=== PATIENT | male | born 1995 | race American Indian/Alaskan Native ===

== ENCOUNTER 2017-05-27 12:01 | Emergency (ER) | payer SELFPAY ==
--- NOTE | 2017-05-27 13:10 | Emergency Department Report ---
Stated Complaint: HEADACHE/VOMITTING /TOOTHACHE Time Seen by Provider: 05/27/17 13:08 - HPI History of Present Illness: PT c/o toothache since yesterday. PT states he has thrown up 4 times. PT states he is taking Goody's powder for the pain - ROS Review of Systems: + nausea + vomiting + dental pain - Exam Physical Exam: thin male, no acute distress no facial swelling noted MSE screening note: Focused history and physical exam performed. Due to findings the following was ordered: labs ED Disposition for MSE Condition: Stable
[2017-05-27 13:12] VITALS: BP 115/81
[2017-05-27 14:41] LABS: Basophils % (Auto) 0.5 % (0.0-1.8); Eosinophils % (Auto) 1.6 % (0.0-4.3); Hematocrit 43.9 % (35.5-45.6); Hemoglobin 14.6 gm/dl (11.8-15.2); Mean Corpuscular HGB Conc 33 % (32-34); Mean Corpuscular Hemoglobin 29 pg (28-32); Mean Corpuscular Volume 88 fl (84-94); Platelet Count 213 K/mm3 (140-440); Red Cell Distribution Width 14.5 % (13.2-15.2); White Blood Count 7.1 K/mm3 (4.5-11.0)
[2017-05-27 15:14] LABS: Alanine Aminotransferase 13 units/L (7-56); Albumin 4.5 g/dL (3.9-5); Albumin/Globulin Ratio 1.6 %; Alkaline Phosphatase 85 units/L (35-129); Anion Gap 19 mmol/L; BUN/Creatinine Ratio 11.42; Blood Urea Nitrogen 8 mg/dL (9-20); Calcium 9.2 mg/dL (8.4-10.2); Carbon Dioxide 25 mmol/L (22-30); Chloride 101.7 mmol/L (98-107); Glucose 73 mg/dL (75-100); Lipase 29 units/L (13-60); Potassium 4.5 mmol/L (3.6-5.0); Sodium 141 mmol/L (137-145); Total Protein 7.3 g/dL (6.3-8.2)
== END 2017-05-27 16:57 | disposition left against medical advice (07) ==
LOC: ED 12:01
DX: K08.89 Other specified disorders of teeth and supporting structures (principal); Z53.21 Procedure and treatment not carried out due to patient leaving prior to being seen by health care provider
CPT/HCPCS: 36415; 80053; 83690; 85025